=== PATIENT | female | born 1955 | race Caucasian/White ===

== ENCOUNTER 2018-02-24 15:13 | Emergency (ER) | payer OTHER ==
[2018-02-24 15:25] VITALS: BP 141/83
--- NOTE | 2018-02-24 15:27 | ED Physician Documentation ---
PD HPI LOWER EXT INJURY - Stated complaint Stated Complaint: RT TOE INJ - Chief complaint Chief Complaint: Ext Problem - History obtained from History obtained from: Patient - History of Present Illness PD HPI LOW EXT INJURY LOCATION: Right (She dropped a wood box on her great toe on the right 2 days ago and has persistent pain and swelling there. No other injuries.) Review of Systems Constitutional: reports: Reviewed and negative Cardiac: reports: Reviewed and negative Respiratory: reports: Reviewed and negative PD PAST MEDICAL HISTORY - Past Medical History Psych: Depression - Past Surgical History Past Surgical History: Yes - Present Medications Home Medications: Ambulatory Orders Medication Instructions Recorded Confirmed RX: Venlafaxine ER [Effexor ER] 150 mg PO DAILY 12/05/13 12/05/13 HYDROcod/ACETAM 5/325 [Vicodin 1 - 2 ea PO Q6H PRN #15 tablet 12/06/13 5/325] Hydrocodone/Acetaminophen 1 - 2 each PO Q6H PRN #20 tablet 03/02/15 [Hydrocodon-Acetaminophen 5-325] RX: Non Formulary 1 each PO QD #0 each 03/02/15 - Allergies Allergies/Adverse Reactions: Allergies Allergy/AdvReac Type Severity Reaction Status Date / Time No Known Drug Allergies Allergy Verified 12/05/13 23:36 - Social History Does the pt smoke?: No Smoking Status: Never smoker Does the pt drink ETOH?: Yes Does the pt have substance abuse?: No - Immunizations Immunizations are current?: Yes PD ED PE NORMAL - Vitals Vital signs reviewed: Yes - General General: Alert and oriented X 3, No acute distress - Extremities Extremities: Other (She is bruised and tender over the proximal phalanx of the right great toe and there is a very small less than 30% subungual hematoma distal to that. She has normal neurovascular status at the tip.) - Neuro Neuro: Alert and oriented X 3, Normal speech - Psych Psych: Normal mood, Normal affect Results - Vitals Vitals: Vital Signs - 24 hr 02/24/18 15:19 Temperature 36.5 C Heart Rate 85 Respiratory 14 Rate Blood Pressure 141/83 H O2 Saturation 97 Oxygen O2 Source Room air - Rads (name of study) R 1st toe Radiology: EMP read contemporaneously (The radiologist's read is normal, but I see on the distal phalanx, proximal medial end there is a Nondisplaced fracture) PD MEDICAL DECISION MAKING - ED course ED course: She has a small subungual hematoma that does not need trephination. The radiologist opinion was that the x-ray was normal but I see especially on the oblique view that there is a nondisplaced fracture of the distal phalanx, proximal medial end. She was giovana taped and placed in a fracture shoe. Departure - Departure Disposition: 01 Home, Self Care Clinical Impression: Fracture of right great toe Condition: Good Record reviewed to determine appropriate education?: Yes Instructions: ED Fx Toe Closed Comments: Your blood pressure was elevated today on check into the emergency department. This does not mean that you have hypertension, it is a common phenomenon to come to the emergency department and have elevated blood pressure. I recommend that you see your primary care physician within the week to have it rechecked when you are feeling better. Discharge Date/Time: 02/24/18 16:06
--- NOTE | 2018-02-24 16:11 | XRAY Report ---
Reason: R great toe inj Procedure Date: 02/24/2018 Accession Number: [id number] / [id number] Procedure: XR - Toe(s) RT CPT Code: FULL RESULT: EXAM: RIGHT FIRST TOE RADIOGRAPHY EXAM DATE: 02/24/2018 03:45 PM. CLINICAL HISTORY: Left great toe injury after dropping a box of wound on distal phalanges. COMPARISON: FOOT 3 VIEW RT 03/02/2015 3:13 PM. TECHNIQUE: 3 views. FINDINGS: Bones: Normal. No fracture or bone lesion. Joints: Normal. No subluxations. Soft Tissues: Normal. No soft tissue swelling. IMPRESSION: Normal toe radiography. [facility]
== END 2018-02-24 16:06 | disposition home or self-care (01) ==
LOC: ED 15:13
DX: S92.414A Nondisplaced fracture of proximal phalanx of right great toe, initial encounter for closed fracture (principal); S90.111A Contusion of right great toe without damage to nail, initial encounter; W22.8XXA Striking against or struck by other objects, initial encounter; R03.0 Elevated blood-pressure reading, without diagnosis of hypertension
CPT/HCPCS: 73660; 99282; 99283

== ENCOUNTER 2020-01-15 12:01 | Outpatient (CLI) | payer MEDICARE, OTHER | END 2020-01-15 12:02 | disposition home or self-care (01) | LOC: COV 12:01 | PROVIDERS: ATTEND Family Medicine | DX: R05 Cough (principal); J02.9 Acute pharyngitis, unspecified; Z20.828 Contact with and (suspected) exposure to other viral communicable diseases ==

== ENCOUNTER 2020-07-19 12:30 | Outpatient (CLI) | payer MEDICARE, OTHER | END 2020-07-19 23:59 | disposition home or self-care (01) | LOC: COV 12:30 | PROVIDERS: ATTEND Internal Medicine | DX: Z01.812 Encounter for preprocedural laboratory examination (principal); Z20.822 Contact with and (suspected) exposure to COVID-19 ==

== ENCOUNTER 2023-08-23 06:50 | Day surgery (SDC) | payer MEDICARE, OTHER ==
[2023-08-23] MEDS: LACTATED RINGERS 1,000 ML IV ONE ×2 (06:57→08:39)
[2023-08-23] MEDS: KETOROLAC 0.45% OPHTH DROPS ONE (07:10)
[2023-08-23] MEDS: PROPARACAINE 0.5% OPHTH DROPS 15 ML ONE (07:10)
[2023-08-23] MEDS: PHENYLEPHRINE 2.5% OPHTH 2 ML DROPS ONE (07:10)
[2023-08-23] MEDS: CYCLOPENTOLATE 1% OPHTH DROPS 2 ML ONE (07:10)
[2023-08-23] MEDS ORDERED: TRIAMCIN/MOXIFLOX OPHTHALMIC 0.6 ML VIAL IO ONE (07:57)
[2023-08-23] MEDS ORDERED: TIMOLOL 0.5% OPHTH DROPS ONE (07:57)
[2023-08-23] MEDS ORDERED: EPINEPHrine 1 MG/ML AMP ONE (07:57)
[2023-08-23] MEDS ORDERED: BRIMONIDINE 0.2% OPHTH DROPS 5 ML ONE (07:57)
[2023-08-23] MEDS ORDERED: BSS/LIDOCAINE/EPINEPHRINE 1 ML VIAL ONE (07:58)
--- NOTE | 2023-08-23 08:06 | ANESTHESIA ---
Pre-Anesthesia VS, & Labs - Diagnosis left eye cataract - Procedure cataract extraction/iol Vital Signs: Temp Pulse Resp BP Pulse Ox O2 Flow Rate 36.1 C L 63 16 117/62 96 0 08/23/23 07:21 08/23/23 07:21 08/23/23 07:21 08/23/23 07:21 08/23/23 07:21 08/23/23 07:21 Height: 57 ft Weight (kg): 78 kg Body Mass Index: 0.2 BMI Classification: Underweight - NPO >8 hours - Is Patient ?: No Home Medications and Allergies Venlafaxine ER [Effexor ER] 150 mg PO DAILY 12/05/13 Allergies/Adverse Reactions: Allergies Allergy/AdvReac Type Severity Reaction Status Date / Time No Known Drug Allergies Allergy Verified 12/05/13 23:36 Anes History & Medical History - Anesthetic History Anesthesia Complications: reports: No previous complications Family history of Anesthesia Complications: Denies - Medical History Cardiovascular: reports: None Pulmonary: reports: None Gastrointestinal: reports: None Urinary: reports: None Musculoskeletal: reports: None Endocrine/Autoimmune: reports: None Skin: reports: None Smoking Status: Never smoker Psychosocial: reports: No issues indicated Exam General: Alert Dental: WNL Mouth Openin Fingerbreadth Neck Mobility: Normal Mallampati classification: II Thyromental Distance: 4-6 cm Plan Anesthesia Type: MAC Consent for Procedure(s) Verified and Reviewed: Yes Code Status: Attempt Resuscitation ASA classification: 1-Healthy patient Is this case an emergency?: No
[2023-08-23] MEDS ORDERED: MIDAZOLAM 2 MG/2 ML VIAL ONE (08:10)
[2023-08-23] MEDS: BRIMONIDINE 0.2% OPHTH DROPS 5 ML OPTH ONE (08:28)
[2023-08-23] MEDS: TIMOLOL 0.5% OPHTH DROPS OPTH ONE (08:28)
[2023-08-23] MEDS: EPINEPHrine 1 MG/ML AMP IR ONE (08:28)
[2023-08-23] MEDS: TRIAMCIN/MOXIFLOX OPHTHALMIC 0.6 ML VIAL IO ONE (08:29)
[2023-08-23] MEDS: BSS/LIDOCAINE/EPINEPHRINE 1 ML SYRINGE IO ONE (08:29)
[2023-08-23] MEDS: PROPARACAINE 0.5% OPHTH DROPS 15 ML EACHEYE ONE (08:30)
[2023-08-23] MEDS: VANCOMYCIN OPHTH (TOPICAL) 10 MG/ML SYRINGE TOP ONE (08:30)
--- NOTE | 2023-08-23 08:39 | OPERATIVE REPORT ---
Operative Report - Other Other Information/Narrative: Date of Surgery: 08/23/23 Preop Dx: Visually significant cataract left eye. This was the first cataract surgery. Postop Dx: Same Procedure: Phacoemulsification with posterior chamber intraocular lens implant left eye Surgeon: Dr. Andres Escudero Anesthesia: Monitored anesthesia care Complications: None Operative Indications: This is a 67-year-old F with progressive vision loss in the left eye due to 3+ nuclear sclerotic cataract with central irregularities. Best corrected visual acuity was 20/30 with glare to 20/400 vision in the left eye. Indications for surgery were: - Overall decrease in vision - Difficulty seeing words, closed captions, or game scores on TV - Difficulty seeing street signs - Difficulty driving in low light or at night - Difficulty driving at night because of headlights from other vehicles - Difficulty with glare or bright lights in any situation The patient was consented at length concerning the risks and benefits of cataract surgery after which the patient expressed a desire to proceed with surgery. Operative Procedure: The patient was taken into OR#3 and placed under monitored anesthesia care. A surgical time-out was conducted confirming correct patient, correct procedure, and correct surgical site. The patient was given topical anesthesia and then prepped and draped in the usual sterile fashion. The eye was entered at the 6 and 3 oclock positions. Intracameral Shugarcaine was injected into the anterior chamber followed by a dispersive viscoelastic. A continuous-tear curvilinear capsulorhexis was performed. The nucleus was hydrodissected and phacoemulsified. The cortex was evacuated using automated infusion and aspiration. A cohesive viscoelastic was injected into the capsular bag and a 18.5 diopter intraocular lens was inserted into the bag. Infusion and aspiration were used to evacuate the viscoelastic materials from the eye. The wounds were hydrated and the eye inflated to physiologic pressure using balanced salt solution. Approximately 0.25ml of a mixture of triamcinolone and moxifloxacin was injected trans-sclerally into the vitreous in the i nferotemporal quadrant using a 30 gauge cannula. An additional 0.25ml of a mixture of triamcinolone and moxifloxacin was injected subconjunctivally in the superior quadrant for infection and inflammation prophylaxis. Wound integrity was checked with Weck-Lianne sponges. The patient was taken from the operating room in good condition and given post-op instructions.
[2023-08-23 09:41] VITALS: BP 116/59; O2SAT 93
--- NOTE | 2023-08-23 11:11 | ANESTHESIA POST OP EVALUATION ---
Anesthesia Post Eval - Post Anesthesia Eval Vitals: Last Vital Signs Temp 36.1 C L 08/23/23 09:05 Pulse 74 08/23/23 09:05 Resp 16 08/23/23 09:05 BP 116/59 L 08/23/23 09:05 Pulse Ox 93 08/23/23 09:05 O2 Flow Rate 0 08/23/23 07:21 CV Function Including HR & BP: Stable Pain Control: Satisfactory Nausea & Vomiting: Negative Mental Status: Baseline Respiratory Status: Airway Patent Hydration Status: Satisfactory Anesthesia Complications: None
== END 2023-08-23 06:51 | disposition home or self-care (01) ==
LOC: SDS 06:50
PROVIDERS: ATTEND Ophthalmology
DX: H25.12 Age-related nuclear cataract, left eye (principal); Z87.891 Personal history of nicotine dependence
CPT/HCPCS: 66984; A9270; J3490; J7120